=== PATIENT | male | born 1995 | race Caucasian/White ===

== ENCOUNTER 2022-03-08 13:00 | Emergency (ER) | payer BC, MEDICARE ==
[~2022-03-08 13:00] MED LIST: COLACE 100MG C100 MG PO; COLCHICINE0.6 MG PO; IBUPROFEN600 MG PO; NORCO 5-325 TA1 EACH PO; PROTONIX 40 MG40 M1 PO; PROTONIX40 MG PO
[2022-03-08 13:33] LABS: HEMOGLOBIN 15.2 gm/dl (14.0-17.5); RED BLOOD COUNT 5.21 M/UL (4.20-5.50); WHITE BLOOD COUNT 12.8 K/UL (4.5-11.0)
[2022-03-08 13:51] LABS: BUN/CREATININE RATIO 11 (0-10)
[2022-03-08] MEDS ORDERED: FLOMAX 0.4 MG0.4 MG PO (16:47)
[2022-03-08] MEDS ORDERED: ZOFRAN ODT 4 MG4 MG PO (16:47)
== END 2022-03-08 18:02 | disposition home or self-care (01) ==
LOC: ER1 13:00
DX: N13.2 Hydronephrosis with renal and ureteral calculous obstruction (principal); J45.909 Unspecified asthma, uncomplicated
CPT/HCPCS: 80053; 81001; 83690; 85025; 93005; 99284

== ENCOUNTER 2022-06-01 13:46 | Emergency (ER) | payer OTHER ==
[~2022-06-01 13:46] MED LIST changes: +FLOMAX 0.4 MG0.4 MG PO; +ZOFRAN ODT 4 MG4 MG PO
== END 2022-06-01 16:02 | disposition home or self-care (01) ==
LOC: ER1 13:46
DX: U07.1 COVID-19 (principal)
CPT/HCPCS: 87081; 87880; 96372; 96374; 99284; J1100; J1885; U0002